=== PATIENT | male | born 1980 | race Two or more races ===

== ENCOUNTER → 2022-01-18 | Outpatient (CLI) | payer OTHER ==
[2015-05-08 18:44] VITALS: BP 114/76
--- NOTE | 2022-01-18 11:17 | KCIC ---
EXAM: Abdomen sonogram. HISTORY: Pain. TECHNIQUE: Sonographic imaging of the abdomen was performed. COMPARISON: None. FINDINGS: The liver is normal in size. No focal hepatic lesion is seen. The gallbladder is unremarkab le. The kidneys are unremarkable. The pancreas, spleen, aorta and inferior vena cava are unremarkable . IMPRESSION: Unremarkable abdomen sonogram. Electronically signed by: Ana Davis MD (01/18/2022 11:15 AM) [id number]
== END ==
LOC: KCIC US 09:42
PROVIDERS: ATTEND Family Medicine
DX: R10.11 Right upper quadrant pain (principal)
CPT/HCPCS: 76700